=== PATIENT | male | born 1960 | race Caucasian/White ===

== ENCOUNTER → 2018-10-25 | Outpatient (CLI) | payer OTHER ==
[2018-10-25 10:45] LABS: Basophils # (A) 0.1 k/uL (0-0.2); Basophils % (A) 2 %; Eosinophils # (A) 0.1 k/uL (0-0.7); Eosinophils % (A) 1 %; HCT 45.9 % (39.0-53.0); Lymphocytes # (A) 1.5 k/uL (1.0-4.8); Lymphocytes % (A) 32 %; MCH 33.8 pg (25.0-35.0); MCHC 32.7 g/dL (31.0-37.0); MCV 103.6 fL (80.0-100.0); Macrocytosis Slight; Mean Platelet Volume 6.5; Monocytes # (A) 0.5 k/uL (0-1.0); Monocytes % (A) 10 %; Neutrophils # (A) 2.5 k/uL (1.3-7.7); Neutrophils % (A) 52 %; Platelet Count 278 k/uL (150-450); RBC 4.43 m/uL (4.30-5.90); WBC 4.7 k/uL (3.8-10.6)
[2018-10-25 10:54] LABS: INR 3.1 (<1.2); Partial Thromboplastin Time 38.1 sec (22.0-30.0); Prothrombin Time 29.4 sec (9.0-12.0)
[2018-10-25 11:00] LABS: Anion Gap 12 mmol/L; Blood Urea Nitrogen 10 mg/dL (9-20); Calcium 9.4 mg/dL (8.4-10.2); Carbon Dioxide 25 mmol/L (22-30); Chloride 102 mmol/L (98-107); Glucose 107 mg/dL (74-99); Potassium 4.2 mmol/L (3.5-5.1); Sodium 139 mmol/L (137-145)
[2018-10-25 11:05] LABS: Appearance,Urine Clear (Clear); Bilirubin,Urine Negative (Negative); Blood,Urine Negative (Negative); Color,Urine Yellow; Glucose,Urine (UA) Negative (Negative); Ketones,Urine Negative (Negative); Leukocyte Esterase,Urine Negative (Negative); Nitrite,Urine Negative (Negative); Protein,Urine Negative (Negative); Specific Gravity,Urine 1.005 (1.001-1.035); Urobilinogen,Urine <2.0 mg/dL (<2.0)
--- NOTE | 2018-10-25 14:42 | XR ---
EXAMINATION TYPE: XR chest 2V DATE OF EXAM: 10/25/2018 COMPARISON: NONE HISTORY: Preop TECHNIQUE: Frontal and lateral views of the chest are obtained. FINDINGS: The descending aorta is tortuous. No evident airspace disease, pneumothorax, or pleural ef fusion. Heart size is within normal limits. IMPRESSION: No acute cardiopulmonary process.
== END | disposition home or self-care (01) ==
LOC: LABPAT 10:08
PROVIDERS: ATTEND Orthopaedic Surgery Orthopaedic Surgery of the Spine
DX: Z01.818 Encounter for other preprocedural examination (principal); Z01.812 Encounter for preprocedural laboratory examination; M48.061 Spinal stenosis, lumbar region without neurogenic claudication; M51.26 Other intervertebral disc displacement, lumbar region
CPT/HCPCS: 36415; 71046; 80048; 81003; 85025; 85610; 85730

== ENCOUNTER 2018-10-31 06:50 | Observation (INO) | payer OTHER ==
[~2018-10-31 06:50] MED LIST: BACITRACIN 50,000 UNIT, POLYMYXIN B 500,000 UNIT in SODIUM CHLORIDE 0.9% IRRIGATIO 1,00... IRRIGATION ONE; LIDOCAINE 1% 20 ML VIAL (10MG/ML) FOR IV START INTRADERMA PRN; ceFAZolin IN SWFI 2 GM/20 ML SYRINGE IVP ONE
[2018-10-31] MEDS: LACTATED RINGERS 1,000 ML IV SCH (07:36)
[2018-10-31] MEDS ORDERED: ONDANSETRON 4 MG/2 ML VIAL IVP ONE (07:43)
[2018-10-31] MEDS ORDERED: HYDROmorphone (PF) 1 MG/ML ONE (07:55)
[2018-10-31] MEDS ORDERED: MIDAZOLAM 2 MG/2 ML VIAL ONE (07:55)
[2018-10-31] MEDS ORDERED: SUCCINYLCHOLINE CHLORIDE 100 MG/5 ML SYR IV ONE (07:55)
[2018-10-31] MEDS ORDERED: PROPOFOL 10 MG/ML 20 ML VIAL IV ONE (07:55)
[2018-10-31] MEDS ORDERED: ROCURONIUM BROMIDE 10 MG/ML 10 ML VIAL IV ONE (07:55)
[2018-10-31] MEDS ORDERED: NEOSTIGMINE 1 MG/ML 10 ML VIAL ONE (07:55)
[2018-10-31] MEDS ORDERED: GLYCOPYRROLATE 0.2 MG/ML 2 ML VIAL ONE (07:55)
[2018-10-31] MEDS ORDERED: fentaNYL (PF) 50 MCG/ML 2 ML AMP ONE (07:55)
[2018-10-31 07:58] LABS: INR 1.6 (<1.2); Prothrombin Time 15.6 sec (9.0-12.0)
[2018-10-31] MEDS ORDERED: THROMBIN (BOVINE) 5,000 UNIT VIAL TOPICAL ONE (08:15)
[2018-10-31] MEDS ORDERED: GELATIN SPONGE,ABSORB (LARGE) 1 EACH SPONGE TOPICAL ONE (08:15)
[2018-10-31] MEDS ORDERED: LIDOCAINE 0.5%-EPI 1:200,000 50 ML VIAL SQ ONE (08:15)
[2018-10-31] MEDS ORDERED: LACTATED RINGERS 1,000 ML IV ONE (08:53)
[2018-10-31] MEDS ORDERED: ONDANSETRON 4 MG/2 ML VIAL IVP PRN (09:32)
[2018-10-31] MEDS ORDERED: oxyCODONE-APAP 10-325MG 1 EACH TAB PO PRN (09:35)
[2018-10-31] MEDS ORDERED: oxyCODONE-APAP 5-325MG 1 EACH TAB PO PRN (09:35)
--- NOTE | 2018-10-31 09:44 | P.OP ---
Date of Procedure: 10/31/18 Preoperative Diagnosis: Spinal stenosis L4 5 L5-S1, degenerative disc disease L4 5 L5-S1, left lower extremity radiculopathy Postoperative Diagnosis: Same Anesthesia: GETA Pathology: none sent Condition: stable Disposition: PACU Description of Procedure: BRIEF OPERATIVE NOTE Preoperative Diagnosis:Spinal stenosis L4 5 L5-S1, degenerative disc disease L4 5 L5-S1, left lower extremity radiculopathy Postoperative Diagnosis:Spinal stenosis L4 5 L5-S1, degenerative disc disease L4 5 L5-S1, left lower extremity radiculopathy Procedure: Laminectomy and decompression L4 5 L5-S1 Foraminotomy L4 5 L5-S1 Surgeon: Dr. Bustillos Reclamation Supervisor: Faustino Sandhu is present throughout the entire the case persistence during positioning, dissection, exposure, visualization, and all crucial elements of the case as well as closure. Anesthesia: General anesthesia Estimated blood loss: Approximately 20 mL Complications: None apparent Components implanted: None Disposition: To recovery room in good stable condition. OPERATIVE INDICATIONS The patient has been having issues in their lower back and lower extremities. He is having left lower extremity radiculopathy and back pain. He is having evidence of neurogenic claudication which correlated with his stenosis at L4 5 and L5-S1. The patient has been through conservative treatment. He is not having any prolonged benefit despite aggressive conservative treatment. We discussed various treatment options including surgery, and the patient wishes to proceed with surgery. We discussed various treatment options and surgical options including possibly of decompression and fusion and the possibility of decompression alone. Patient was eager to try to avoid any fusion surgery and we discussed the issues with this as well as possibility of recurrence of his issues and the degenerative changes that he already has at his lumbar spine. The patient wished to proceed with decompression alone. We discussed the risk, patient's alternatives and benefits of surgery including but not limited to, risk of bleeding risk of infection, risk of need for further surgery, risk of decreased, loss of motion, loss of function, nerve damage, paralysis, heart attack, blindness and . OPERATIVE SUMMARY After discussing all the risks, patient alternatives and benefits at length, the patient elected to proceed with surgical intervention, signed informed consent, and presented for their procedure. The patient was seen and examined in the preoperative holding area and the surgical site was marked. The patient was given antibiotics and brought to the operating room. The patient was sedated and intubated by anesthesia in standard fashion. The patient was positioned on to the operating room table in a prone position on the appropriate frame which was well-padded and well molded. We were careful to pad any bony prominences and pressure points. We were careful to maintain the patient's cervical spine and good neutral alignment and position throughout. The patient was prepped and draped in a normal standard fashion. An appropriate timeout and keystone protocol performed. We were able to proceed with the surgery. Fluoroscopy was utilized to establish the appropriate level. The local wound area was infiltrated with local anesthetic. An incision was made at the midline longitudinally over the appropriate levels at L4 5 and S1. Dissection was taken down subcutaneously to the level of the fascia which was split midline. Dissection was taken over the lamina. Intraoperative fluoroscopy was taken which showed a marker at the appropriate level at L5-S1. With the appropriate level positively confirmed, we were able to proceed with laminectomy first at L5-S1 and at L4 5. The wound was copiously irrigated and suctioned dry as had been done periodically throughout the case. I performed a laminectomy with a combination of curettes and a high-speed bur and Kerrison rongeurs. A small medial facetectomy was performed again further access. A partial foraminotomy was also performed. Portions of the ligamentum flavum were taken down to expose the dura and traversing nerve root. I was able to mobilize the traversing nerve root and gain access to the disc space. There is evidence of significant foraminal stenosis and osteophytic spurring at the subcu space at both L4 5 and L5-S1. As able to do partial foraminotomy and removed the thickened ligaments as well as the thickened capsule and osteophytes first at the deep portion of the facet to get good open foraminotomy. I did not see obvious disc herniation or extruded fragments at L4 5 L5-S1. There is some diffuse disc bulging but the foraminotomy and decompression gave good decompression without evidence of further torsion or tension on the traversing or exiting nerve roots. There is no evidence of dural tear or leak. Good hemostasis maintained. The wound was copiously irrigated and suctioned dry. Good decompression and discectomy was noted. We were able to proceed with closure. The fascia was closed for a watertight closure. The subcuticular tissue was closed with absorbable suture. The wound was cleaned and dried and dressed with the appropriate dressing. The drapes were broken down. The patient was gently rolled back onto their hospital bed being careful to maintain their cervical spine and good neutral alignment and position. They were woken up by anesthesia, extubated, and brought to the recovery room in good stable condition. The patient will be admitted to the hospital for observation and for appropriate postoperative care, medical management and monitoring. We will continue to follow them closely about the postoperative course.
[2018-10-31] MEDS: HYDROmorphone 0.5 MG/0.5 ML SYRINGE IVP PRN ×2 (09:48→09:53)
[2018-10-31] MEDS ORDERED: KETOROLAC 30 MG/ML 1 ML VIAL IVP ONE (10:26)
[2018-10-31] MEDS ORDERED: fentaNYL (PF) 50 MCG/ML 2 ML AMP IV ONE (10:35)
--- NOTE | 2018-10-31 10:41 | XR ---
Limited lumbar spine HISTORY: Needle placement Single intraoperative C-arm image documents the procedure.
--- NOTE | 2018-10-31 10:42 | FL ---
Fluoroscopy HISTORY: Needle placement 1 seconds fluoroscopy time supplied to the referring clinician. 1 intraoperative C-arm images docume nt the procedure. See dictated report from orthopedic surgery.
[2018-10-31 12:01] VITALS: BMI 27.9
[2018-10-31] MEDS: oxyCODONE-APAP 10-325MG 1 EACH TAB PO PRN ×3 (13:35→21:20)
[2018-10-31] MEDS: ceFAZolin IN SWFI 2 GM/20 ML SYRINGE IVP SCH ×2 (16:09→23:46)
[2018-10-31] MEDS: KETOROLAC 30 MG/ML 1 ML VIAL IVP PRN ×2 (16:29→23:58)
[2018-11-01 03:14] VITALS: TEMP 97.4
[2018-11-01] MEDS: oxyCODONE-APAP 10-325MG 1 EACH TAB PO PRN (03:49)
[2018-11-01] MEDS: LACTATED RINGERS 1,000 ML IV SCH (04:58)
--- NOTE | 2018-11-01 09:09 | P.DS ---
Providers Date of admission: 11/01/18 04:02 Attending physician: Rebeca Bustillos Primary care physician: Physician Nonstaff Hospital Course: The patient presented on the day of admission as per their operative note. He had spinal stenosis L45 and L5-S1 with degenerative disc disease and lower extremity radiculopathy. He underwent decompression laminectomy and foraminotomy L4 5 L5-S1 as per his operative note. He feels his legs are doing better. He still has some numbness over the top of his left foot. His back is sore but he is tolerating adequately. Physical Exam The incision site is clean dry and intact. There is no erythema no drainage. There is no purulence no evidence of infection. There is no active drainage or bleeding. Abdomen soft and nontender. Chest has good excursion with deep inspiration and expiration. The patient has active and passive range of motion intact at the upper and lower extremities. There is no acute change in neurologic status. He has sustained dorsal flexion plantar flexion and EHL intact. He is ambulatory and walking into the hallways with a slight limp at the left. Hospital Course Postoperative day #1 status post laminectomy decompression and foraminotomy for his spinal stenosis and lower extremity radiculopathy and neurogenic claudication. He feels he is making progress in terms of his lower extremity symptoms already. The patient has been making good progress postoperatively. They have completed the prophylactic antibiotics without any signs or symptoms of infection. The patient has been able to advance their diet, and is tolerating diet adequately. The pain was initially controlled with IV medications and is now controlled appropriately with oral medications. The patient has been able to increase their mobilization. He is amatory in the hallways without any assistance. He is not showing any evidence of active bleeding and I think it is okay for him to resume his regular anticoagulation area The patient has progressed appropriately. I think they are in good stable condition for discharge today. They will be sent home with appropriate prescriptions. I answered their questions to the best of my ability in a language that they can understand and they are agreeable with the plan. They will follow up as directed in a proximal 2 weeks. Patient Condition at Discharge: Good Plan - Discharge Summary Discharge Rx Participant: No New Discharge Prescriptions: No Action oxyCODONE-APAP 10-325MG [Percocet 10-325 mg] 1 tab PO Q8HR PRN PRN Reason: Pain Warfarin [Coumadin] 2 mg PO DIRECTED Warfarin [Coumadin] 1 mg PO DIRECTED Discharge Medication List Warfarin [Coumadin] 1 mg PO DIRECTED 10/23/18 [History] Warfarin [Coumadin] 2 mg PO DIRECTED 10/23/18 [History] oxyCODONE-APAP 10-325MG [Percocet 10-325 mg] 1 tab PO Q8HR PRN 10/23/18 [History] Follow up Appointment(s)/Referral(s): Rebeca Bustillos DO [Doctor of Osteopathic Medicine] - 2 Weeks Activity/Diet/Wound Care/Special Instructions: Keep site clean. May shower with waterproof Tegaderm intact. Do not soak in a tub. After 72 hours postoperatively, patient May remove dressing and then may shower with area uncovered. Leave Steri-Strips intact and allow them to fray off on their own. May ambulate as tolerated. Avoid heavy or rigorous activity. No repetitive bending twisting or lifting. No overhead work. Discharge Disposition: HOME SELF-CARE
[2018-11-01 09:11] VITALS: BP 129/79; PULSE 74; RESP 16
== END 2018-11-01 09:35 | disposition home or self-care (01) ==
LOC: OR 06:50 → 4SSUR 09:35 → OR 11-01 04:02 → 4SSUR 11-01 04:02
PROVIDERS: ADMIT Orthopaedic Surgery Orthopaedic Surgery of the Spine; ATTEND Orthopaedic Surgery Orthopaedic Surgery of the Spine
DX: M51.06 Intervertebral disc disorders with myelopathy, lumbar region (principal); M51.16 Intervertebral disc disorders with radiculopathy, lumbar region; M51.17 Intervertebral disc disorders with radiculopathy, lumbosacral region; M48.07 Spinal stenosis, lumbosacral region; M48.062 Spinal stenosis, lumbar region with neurogenic claudication; F17.210 Nicotine dependence, cigarettes, uncomplicated; F10.20 Alcohol dependence, uncomplicated; D68.51 Activated protein C resistance; I83.93 Asymptomatic varicose veins of bilateral lower extremities; Z86.711 Personal history of pulmonary embolism; Z79.01 Long term (current) use of anticoagulants; Z79.891 Long term (current) use of opiate analgesic; Z83.3 Family history of diabetes mellitus; Z82.49 Family history of ischemic heart disease and other diseases of the circulatory system; Z90.81 Acquired absence of spleen; Z88.8 Allergy status to other drugs, medicaments and biological substances
CPT/HCPCS: 63047; 63048; 97161; 85610; 72020; G0378; J2250; J2710; J2405; J3010; J1885; J1170 ×2; J0330; J2704; J0690; 86850; 86900; 86901